=== PATIENT | male | born 2000 | race Caucasian/White ===

== ENCOUNTER 2018-07-14 11:37 | Emergency (ER) | payer OTHER, SELFPAY ==
[2018-07-14 11:42] VITALS: BP 145/83; PULSE 85; RESP 20; TEMP 36.6; O2SAT 97; BMI 39.9
--- NOTE | 2018-07-14 12:44 | ED.CHESTPAIN ---
HPI - Chest Pain <CYNTHIA Phipps - Last Filed: 07/14/18 21:29> General Chief Complaint: Chest Pain Stated Complaint: rash on left arm and stomach, chest pain, low O2 l Time Seen by Provider: 07/14/18 12:28 Source: patient Mode of arrival: ambulatory Limitations: no limitations History of Present Illness HPI narrative: 18-year-old healthy male that is an everyday smoker here for complaint of having chest pain over the past 3 days. He does report also having a mild cough. He denies any fevers or chills. He states the pain radiates to his back he describes the pain as mild in nature he denies any stressors or relievers of the pain. He also reports that he had a rash to his left arm that was present this morning when he woke up although at time of exam resolved. no nausea or vomiting. Positive p.o. intake. He denies any trauma to the chest area. He denies any strenuous activity. No shortness of breath. He denies any other concerns or complaints at this time. MD complaint: chest pain Related Data Previous Rx's Medication Instructions Recorded doxycycline hyclate 100 mg PO BID #14 tab 07/14/18 Allergies Allergy/AdvReac Type Severity Reaction Status Date / Time amoxicillin [From Augmentin] Allergy Verified 07/14/18 11:47 clavulanic acid Allergy Verified 07/14/18 11:47 [From Augmentin] NSAIDS (Non-Steroidal Allergy Verified 07/14/18 11:47 Anti-Inflamma Review of Systems <CYNTHIA Phipps - Last Filed: 07/14/18 21:29> Constitutional Denies chills, Denies fatigue, Denies fever(s), Denies lethargy and Denies weakness Eyes Denies change in vision, Denies eye discharge, Denies irritation and Denies loss of vision ENT Ears, Nose, Mouth, and Throat: Denies change in voice, Denies neck pain, Denies sore throat and Denies throat swelling Cardiovascular Reports chest pain Respiratory Reports cough and Denies wheezing Gastrointestinal Gastrointestinal: Denies abdominal pain, Denies change in bowel habits, Denies diarrhea, Denies nausea and Denies vomiting Genitourinary Denies hematuria, Denies flank pain, Denies urinary incontinence and Denies urinary urgency Musculoskeletal Denies neck pain Integumentary/Breasts Denies pruritus, Denies erythema, Denies rash and Denies wounds Neurologic Denies confusion, Denies loss of vision and Denies weakness Psychiatric Denies anxiety, Denies confusion, Denies depression, Denies homicidal ideation and Denies suicidal ideation Endocrine Denies fatigue and Denies flushing Hematologic/Lymphatic Denies easy bruising Allergic/Immunologic Denies urticaria, Denies throat swelling and Denies wheezing Exam <CYNTHIA Phipps - Last Filed: 07/14/18 21:29> Initial Vital Signs Initial Vital Signs: Vital Signs Temperature 97.8 F 07/14/18 11:42 Pulse Rate 85 07/14/18 11:42 Respiratory Rate 20 07/14/18 11:42 Blood Pressure 145/83 H 07/14/18 11:42 Pulse Oximetry 97 07/14/18 11:42 Const General: cooperative and well developed Nutritional Appearance: well nourished Orientation: alert, awake, oriented x3 and not confused HENMT Mouth: oral mucosae normal and oropharynx normal Eyes Conjunctivae: conjunctivae normal Sclera: sclerae normal Pupils: PERRL EOM: EOM intact bilaterally Chest Chest: normal inspection of the chest Resp Effort & Inspection: normal respiratory effort, able to speak in complete sentences, no respiratory distress and no use of accessory muscles Auscultation: clear to auscultation bilaterally, no rales, no rhonchi and no wheezes Cardio Rate: regular rate Rhythm: regular rhythm Heart Sounds: no click, no gallops, no murmurs and no rubs Skin General: no rashes or lesions noted, No jaundice and No petechiae Neuro General: alert, oriented x3, gait normal and no focal motor deficits Speech: speech normal <Randall Ruiz DO - Last Filed: 07/15/18 08:18> Initial Vital Signs Initial Vital Signs: Vital Signs Temperature 97.8 F 07/14/18 11:42 Pulse Rate 85 07/14/18 11:42 Respiratory Rate 20 07/14/18 11:42 Blood Pressure 145/83 H 07/14/18 11:42 Pulse Oximetry 97 07/14/18 11:42 Scores <CYNTHIA Phipps - Last Filed: 07/14/18 21:29> PERC Score Age greater than or equal to 50 years: No Heart rate greater than or equal to 100 bpm: No Room Air O2 Sat less than 95%: No Unilateral leg swelling: No Recent trauma or surgery: No Hemoptysis: No Prior PE or DVT: No Hormone Use: No Total PERC Score: 0 Course <CYNTHIA Phipps - Last Filed: 07/14/18 21:29> Orders Ordered: ED Orders 07/14/18 12:49 XR chest 1V Stat 07/14/18 13:04 Complete Blood Count AUTO DIFF Stat Comprehensive Metabolic Panel Stat Lipase Stat Troponin & CK Cardiac Panel Stat Vital Signs - 8 hr 07/14/18 13:53 Pulse Rate 82 Respiratory Rate 12 Blood Pressure [Right Arm] 120/75 Pulse Oximetry 96 <Randall Ruiz DO - Last Filed: 07/15/18 08:18> Orders Ordered: ED Orders 07/14/18 12:49 XR chest 1V Stat 07/14/18 13:04 Complete Blood Count AUTO DIFF Stat Comprehensive Metabolic Panel Stat Lipase Stat Troponin & CK Cardiac Panel Stat Vital Signs - 8 hr 07/14/18 13:53 Pulse Rate 82 Respiratory Rate 12 Blood Pressure [Right Arm] 120/75 Pulse Oximetry 96 MDM - Chest Pain <CYNTHIA Phipps - Last Filed: 07/14/18 21:29> Lab Data Result diagrams: 07/14/18 13:04 07/14/18 13:04 Lab Results 07/14/18 07/14/18 Range/Units 13:04 13:04 WBC 6.6 (4.5-11.0) X10^3/uL RBC 5.88 (4.5-5.9) X10^6/uL Hgb 17.0 (13.5-17.5) g/dL Hct 49.6 (41-53) % MCV 84.4 (80-100) fL MCH 28.9 (26-34) PG MCHC 34.3 (30-36) % RDW 13.6 (11.6-14.8) % Plt Count 235 (150-400) X10^3/uL Neut % (Auto) 55.8 (50-75) % Lymph % (Auto) 34.7 (25-40) % [place] % (Auto) 7.2 (3-14) % Eos % (Auto) 1.8 L (2-4) % Baso % (Auto) 0.5 (0-2) % Neut # (Auto) 3700 (6608-5435) /uL Sodium 144 (137-145) mmol/L Potassium 4.2 (3.4-5.1) mmol/L Chloride 104 (98-107) mmol/L Carbon Dioxide 26 (22-32) mmol/L BUN 12 (9-20) mg/dL Creatinine 0.70 (0.66-1.25) mg/dL Estimated GFR > 60.0 (>60) mL/min BUN/Creatinine Ratio 17.1 (6-22) Glucose 91 (70-100) mg/dL Calcium 9.5 (8.4-10.2) mg/dL Total Bilirubin 1.2 (0.2-1.3) mg/dL AST 25 (17-59) IU/L ALT 55 (21-72) IU/L Alkaline Phosphatase 40 (38-126) U/L Total Creatine Kinase 67 (55-170) U/L CK-MB (CK-2) TNP CK-MB (CK-2) Rel Index TNP Troponin I < 0.012 (0.01-0.034) ng/mL Total Protein 7.6 (6.3-8.2) g/dL Albumin 4.7 (3.5-5.0) g/dL Globulin 2.9 (1.7-4.1) g/dL Albumin/Globulin Ratio 1.6 (1.0-2.8) Lipase 35 (23-300) U/L Imaging Data Chest x-ray: Radiologist's impression: [address] [address] XRay Report Signed Patient: Kishore Marques [facility]#: [id number] : 2000Acct:[id number] Age/Sex: 18 MDate of Service: 07/14/18 Loc: ED Accession Number: [id number] Procedure: XR chest 1V Ordering Provider: Ryan Hussein PROCEDURE: XR CHEST 1V INDICATIONS: chest pain TECHNIQUE: One view of the chest was acquired. COMPARISON: None. FINDINGS: Surgical changes and devices: None. Lungs and pleura: Mild increased perihilar lung markings are identified. There may be developing airspace disease within the left infrahilar region. No large effusion or pneumothorax is evident. Mediastinum: Mediastinal contours appear normal. Heart size is normal. Bones and chest wall: No suspicious bony lesions. Overlying soft tissues appear unremarkable. IMPRESSION: Mild vascular congestion versus atypical viral pneumonia. There is questionable developing consolidation within the left lung base, which may represent developing bacterial pneumonia. Dictated by: Carlos Mar M.D. on 07/14/2018 at 12:11 Approved by: Carlos Mar M.D. on 07/14/2018 at 12:12 ECG Data Interpretation: EKG shows normal sinus rhythm with no ST elevation or depression. No ectopy. Ventricular rate is 76. Pr over 139. QRS duration of 116. QTC 376 MDM Narrative Medical decision making narrative: EKG shows sinus rhythm no ST elevation or depression. No ectopy. Chest x-ray was obtained and shows areas of mild vascular congestion versus atypical viral pneumonia and also questionable developing consolidation to the left lung base. CBC and Chem panel were obtained were unremarkable. Troponin was negative. Perc score was negative. Will empirically treat for starting pneumonia with doxycycline. Follow up with primary care provider in the next few days for re-evaluation. Plenty of fluids and rest. [id number] Tylenol Motrin as needed for any discomfort. <Randall Ruiz, DO - Last Filed: 07/15/18 08:18> Lab Data Lab Results 07/14/18 07/14/18 Range/Units 13:04 13:04 WBC 6.6 (4.5-11.0) X10^3/uL RBC 5.88 (4.5-5.9) X10^6/uL Hgb 17.0 (13.5-17.5) g/dL Hct 49.6 (41-53) % MCV 84.4 (80-100) fL MCH 28.9 (26-34) PG MCHC 34.3 (30-36) % RDW 13.6 (11.6-14.8) % Plt Count 235 (150-400) X10^3/uL Neut % (Auto) 55.8 (50-75) % Lymph % (Auto) 34.7 (25-40) % [place] % (Auto) 7.2 (3-14) % Eos % (Auto) 1.8 L (2-4) % Baso % (Auto) 0.5 (0-2) % Neut # (Auto) 3700 (5966-3856) /uL Sodium 144 (137-145) mmol/L Potassium 4.2 (3.4-5.1) mmol/L Chloride 104 (98-107) mmol/L Carbon Dioxide 26 (22-32) mmol/L BUN 12 (9-20) mg/dL Creatinine 0.70 (0.66-1.25) mg/dL Estimated GFR > 60.0 (>60) mL/min BUN/Creatinine Ratio 17.1 (6-22) Glucose 91 (70-100) mg/dL Calcium 9.5 (8.4-10.2) mg/dL Total Bilirubin 1.2 (0.2-1.3) mg/dL AST 25 (17-59) IU/L ALT 55 (21-72) IU/L Alkaline Phosphatase 40 (38-126) U/L Total Creatine Kinase 67 (55-170) U/L CK-MB (CK-2) TNP CK-MB (CK-2) Rel Index TNP Troponin I < 0.012 (0.01-0.034) ng/mL Total Protein 7.6 (6.3-8.2) g/dL Albumin 4.7 (3.5-5.0) g/dL Globulin 2.9 (1.7-4.1) g/dL Albumin/Globulin Ratio 1.6 (1.0-2.8) Lipase 35 (23-300) U/L Discharge Plan Departure Patient Disposition: Home Clinical Impression: Community acquired pneumonia Discharge Date/Time: 07/14/18 14:00 Interventions: ED Discharge Assessment Last Done: 07/14/18 13:59 Instructions: DI for Pneumonia -- Adult Activity Restrictions/Additional Instructions: laboratory results today were unremarkable. EKG was unremarkable. Cardiac enzymes today were negative. Chest x-ray does shows signs of a possible starting pneumonia. Year placed on antibiotic to cover for community-acquired pneumonia use as directed. Plenty of fluids. Use [id number] Tylenol as needed for any discomfort. Follow up with her primary care provider the next few days. For any worsening symptoms return to the emergency room. Prescriptions: New doxycycline hyclate 100 mg tablet 100 mg PO BID Qty: 14 RF: 0 Referrals: [facility] [Provider Group] <Randall Ruiz DO - Last Filed: 07/15/18 08:18> Cosign ED Attending Laureenature Attestation: I was immediately available in the department for consultation. Documentation has been reviewed. I agree with assessment and plan.
--- NOTE | 2018-07-14 12:49 | DI.RAD.S_ITS ---
PROCEDURE: XR CHEST 1V INDICATIONS: chest pain TECHNIQUE: One view of the chest was acquired. COMPARISON: None. FINDINGS: Surgical changes and devices: None. Lungs and pleura: Mild increased perihilar lung markings are identified. There may be developing airspace disease within the left infrahilar region. No large effusion or pneumothorax is evident. Mediastinum: Mediastinal contours appear normal. Heart size is normal. Bones and chest wall: No suspicious bony lesions. Overlying soft tissues appear unremarkable. IMPRESSION: Mild vascular congestion versus atypical viral pneumonia. There is questionable developing consolidation within the left lung base, which may represent developing bacterial pneumonia. Dictated by: Carlos Mar M.D. on 07/14/2018 at 12:11 Approved by: Carlos Mar M.D. on 07/14/2018 at 12:12
--- NOTE | 2018-07-14 12:52 | ED_ITS ---
HPI - Chest Pain <CYNTHIA Phipps - Last Filed: 07/14/18 21:29> General Chief Complaint: Chest Pain Stated Complaint: rash on left arm and stomach, chest pain, low O2 l Time Seen by Provider: 07/14/18 12:28 Source: patient Mode of arrival: ambulatory Limitations: no limitations History of Present Illness HPI narrative: 18-year-old healthy male that is an everyday smoker here for complaint of having chest pain over the past 3 days. He does report also having a mild cough. He denies any fevers or chills. He states the pain radiates to his back he describes the pain as mild in nature he denies any stressors or relievers of the pain. He also reports that he had a rash to his left arm that was present this morning when he woke up although at time of exam resolved. no nausea or vomiting. Positive p.o. intake. He denies any trauma to the chest area. He denies any strenuous activity. No shortness of breath. He denies any other concerns or complaints at this time. MD complaint: chest pain Related Data Previous Rx's Medication Instructions Recorded doxycycline hyclate 100 mg PO BID #14 tab 07/14/18 Allergies Allergy/AdvReac Type Severity Reaction Status Date / Time amoxicillin [From Augmentin] Allergy Verified 07/14/18 11:47 clavulanic acid Allergy Verified 07/14/18 11:47 [From Augmentin] NSAIDS (Non-Steroidal Allergy Verified 07/14/18 11:47 Anti-Inflamma Review of Systems <CYNTHIA Phipps - Last Filed: 07/14/18 21:29> Constitutional Denies chills, Denies fatigue, Denies fever(s), Denies lethargy and Denies weakness Eyes Denies change in vision, Denies eye discharge, Denies irritation and Denies loss of vision ENT Ears, Nose, Mouth, and Throat: Denies change in voice, Denies neck pain, Denies sore throat and Denies throat swelling Cardiovascular Reports chest pain Respiratory Reports cough and Denies wheezing Gastrointestinal Gastrointestinal: Denies abdominal pain, Denies change in bowel habits, Denies diarrhea, Denies nausea and Denies vomiting Genitourinary Denies hematuria, Denies flank pain, Denies urinary incontinence and Denies urinary urgency Musculoskeletal Denies neck pain Integumentary/Breasts Denies pruritus, Denies erythema, Denies rash and Denies wounds Neurologic Denies confusion, Denies loss of vision and Denies weakness Psychiatric Denies anxiety, Denies confusion, Denies depression, Denies homicidal ideation and Denies suicidal ideation Endocrine Denies fatigue and Denies flushing Hematologic/Lymphatic Denies easy bruising Allergic/Immunologic Denies urticaria, Denies throat swelling and Denies wheezing Exam <CYNTHIA Phipps - Last Filed: 07/14/18 21:29> Initial Vital Signs Initial Vital Signs: Vital Signs Temperature 97.8 F 07/14/18 11:42 Pulse Rate 85 07/14/18 11:42 Respiratory Rate 20 07/14/18 11:42 Blood Pressure 145/83 H 07/14/18 11:42 Pulse Oximetry 97 07/14/18 11:42 Const General: cooperative and well developed Nutritional Appearance: well nourished Orientation: alert, awake, oriented x3 and not confused HENMT Mouth: oral mucosae normal and oropharynx normal Eyes Conjunctivae: conjunctivae normal Sclera: sclerae normal Pupils: PERRL EOM: EOM intact bilaterally Chest Chest: normal inspection of the chest Resp Effort & Inspection: normal respiratory effort, able to speak in complete sentences, no respiratory distress and no use of accessory muscles Auscultation: clear to auscultation bilaterally, no rales, no rhonchi and no wheezes Cardio Rate: regular rate Rhythm: regular rhythm Heart Sounds: no click, no gallops, no murmurs and no rubs Skin General: no rashes or lesions noted, No jaundice and No petechiae Neuro General: alert, oriented x3, gait normal and no focal motor deficits Speech: speech normal <Randall Ruiz DO - Last Filed: 07/15/18 08:18> Initial Vital Signs Initial Vital Signs: Vital Signs Temperature 97.8 F 07/14/18 11:42 Pulse Rate 85 07/14/18 11:42 Respiratory Rate 20 07/14/18 11:42 Blood Pressure 145/83 H 07/14/18 11:42 Pulse Oximetry 97 07/14/18 11:42 Scores <CYNTHIA Phipps - Last Filed: 07/14/18 21:29> PERC Score Age greater than or equal to 50 years: No Heart rate greater than or equal to 100 bpm: No Room Air O2 Sat less than 95%: No Unilateral leg swelling: No Recent trauma or surgery: No Hemoptysis: No Prior PE or DVT: No Hormone Use: No Total PERC Score: 0 Course <CYNTHIA Phipps - Last Filed: 07/14/18 21:29> Orders Ordered: ED Orders 07/14/18 12:49 XR chest 1V Stat 07/14/18 13:04 Complete Blood Count AUTO DIFF Stat Comprehensive Metabolic Panel Stat Lipase Stat Troponin & CK Cardiac Panel Stat Vital Signs - 8 hr 07/14/18 13:53 Pulse Rate 82 Respiratory Rate 12 Blood Pressure [Right Arm] 120/75 Pulse Oximetry 96 <Randall Ruiz DO - Last Filed: 07/15/18 08:18> Orders Ordered: ED Orders 07/14/18 12:49 XR chest 1V Stat 07/14/18 13:04 Complete Blood Count AUTO DIFF Stat Comprehensive Metabolic Panel Stat Lipase Stat Troponin & CK Cardiac Panel Stat Vital Signs - 8 hr 07/14/18 13:53 Pulse Rate 82 Respiratory Rate 12 Blood Pressure [Right Arm] 120/75 Pulse Oximetry 96 MDM - Chest Pain <CYNTHIA Phipps - Last Filed: 07/14/18 21:29> Lab Data Result diagrams: 07/14/18 13:04 07/14/18 13:04 Lab Results 07/14/18 07/14/18 Range/Units 13:04 13:04 WBC 6.6 (4.5-11.0) X10^3/uL RBC 5.88 (4.5-5.9) X10^6/uL Hgb 17.0 (13.5-17.5) g/dL Hct 49.6 (41-53) % MCV 84.4 (80-100) fL MCH 28.9 (26-34) PG MCHC 34.3 (30-36) % RDW 13.6 (11.6-14.8) % Plt Count 235 (150-400) X10^3/uL Neut % (Auto) 55.8 (50-75) % Lymph % (Auto) 34.7 (25-40) % [place] % (Auto) 7.2 (3-14) % Eos % (Auto) 1.8 L (2-4) % Baso % (Auto) 0.5 (0-2) % Neut # (Auto) 3700 (4108-0380) /uL Sodium 144 (137-145) mmol/L Potassium 4.2 (3.4-5.1) mmol/L Chloride 104 (98-107) mmol/L Carbon Dioxide 26 (22-32) mmol/L BUN 12 (9-20) mg/dL Creatinine 0.70 (0.66-1.25) mg/dL Estimated GFR > 60.0 (>60) mL/min BUN/Creatinine Ratio 17.1 (6-22) Glucose 91 (70-100) mg/dL Calcium 9.5 (8.4-10.2) mg/dL Total Bilirubin 1.2 (0.2-1.3) mg/dL AST 25 (17-59) IU/L ALT 55 (21-72) IU/L Alkaline Phosphatase 40 (38-126) U/L Total Creatine Kinase 67 (55-170) U/L CK-MB (CK-2) TNP CK-MB (CK-2) Rel Index TNP Troponin I < 0.012 (0.01-0.034) ng/mL Total Protein 7.6 (6.3-8.2) g/dL Albumin 4.7 (3.5-5.0) g/dL Globulin 2.9 (1.7-4.1) g/dL Albumin/Globulin Ratio 1.6 (1.0-2.8) Lipase 35 (23-300) U/L Imaging Data Chest x-ray: Radiologist's impression: [address] [address] XRay Report Signed Patient: Kishore Marques [facility]#: [id number] : 2000Acct:[id number] Age/Sex: 18 MDate of Service: 07/14/18 Loc: ED Accession Number: [id number] Procedure: XR chest 1V Ordering Provider: Ryan Hussein PROCEDURE: XR CHEST 1V INDICATIONS: chest pain TECHNIQUE: One view of the chest was acquired. COMPARISON: None. FINDINGS: Surgical changes and devices: None. Lungs and pleura: Mild increased perihilar lung markings are identified. There may be developing airspace disease within the left infrahilar region. No large effusion or pneumothorax is evident. Mediastinum: Mediastinal contours appear normal. Heart size is normal. Bones and chest wall: No suspicious bony lesions. Overlying soft tissues appear unremarkable. IMPRESSION: Mild vascular congestion versus atypical viral pneumonia. There is questionable developing consolidation within the left lung base, which may represent developing bacterial pneumonia. Dictated by: Carlos Mar M.D. on 07/14/2018 at 12:11 Approved by: Carlos Mar M.D. on 07/14/2018 at 12:12 ECG Data Interpretation: EKG shows normal sinus rhythm with no ST elevation or depression. No ectopy. Ventricular rate is 76. Pr over 139. QRS duration of 116. QTC 376 MDM Narrative Medical decision making narrative: EKG shows sinus rhythm no ST elevation or depression. No ectopy. Chest x-ray was obtained and shows areas of mild vascular congestion versus atypical viral pneumonia and also questionable developing consolidation to the left lung base. CBC and Chem panel were obtained were unremarkable. Troponin was negative. Perc score was negative. Will empirically treat for starting pneumonia with doxycycline. Follow up with primary care provider in the next few days for re-evaluation. Plenty of fluids and rest. [id number] Tylenol Motrin as needed for any discomfort. <Randall Ruiz, DO - Last Filed: 07/15/18 08:18> Lab Data Lab Results 07/14/18 07/14/18 Range/Units 13:04 13:04 WBC 6.6 (4.5-11.0) X10^3/uL RBC 5.88 (4.5-5.9) X10^6/uL Hgb 17.0 (13.5-17.5) g/dL Hct 49.6 (41-53) % MCV 84.4 (80-100) fL MCH 28.9 (26-34) PG MCHC 34.3 (30-36) % RDW 13.6 (11.6-14.8) % Plt Count 235 (150-400) X10^3/uL Neut % (Auto) 55.8 (50-75) % Lymph % (Auto) 34.7 (25-40) % [place] % (Auto) 7.2 (3-14) % Eos % (Auto) 1.8 L (2-4) % Baso % (Auto) 0.5 (0-2) % Neut # (Auto) 3700 (4005-5808) /uL Sodium 144 (137-145) mmol/L Potassium 4.2 (3.4-5.1) mmol/L Chloride 104 (98-107) mmol/L Carbon Dioxide 26 (22-32) mmol/L BUN 12 (9-20) mg/dL Creatinine 0.70 (0.66-1.25) mg/dL Estimated GFR > 60.0 (>60) mL/min BUN/Creatinine Ratio 17.1 (6-22) Glucose 91 (70-100) mg/dL Calcium 9.5 (8.4-10.2) mg/dL Total Bilirubin 1.2 (0.2-1.3) mg/dL AST 25 (17-59) IU/L ALT 55 (21-72) IU/L Alkaline Phosphatase 40 (38-126) U/L Total Creatine Kinase 67 (55-170) U/L CK-MB (CK-2) TNP CK-MB (CK-2) Rel Index TNP Troponin I < 0.012 (0.01-0.034) ng/mL Total Protein 7.6 (6.3-8.2) g/dL Albumin 4.7 (3.5-5.0) g/dL Globulin 2.9 (1.7-4.1) g/dL Albumin/Globulin Ratio 1.6 (1.0-2.8) Lipase 35 (23-300) U/L Discharge Plan Departure Patient Disposition: Home Clinical Impression: Community acquired pneumonia Discharge Date/Time: 07/14/18 14:00 Interventions: ED Discharge Assessment Last Done: 07/14/18 13:59 Instructions: DI for Pneumonia -- Adult Activity Restrictions/Additional Instructions: laboratory results today were unremarkable. EKG was unremarkable. Cardiac enzymes today were negative. Chest x-ray does shows signs of a possible starting pneumonia. Year placed on antibiotic to cover for community-acquired pneumonia use as directed. Plenty of fluids. Use [id number] Tylenol as needed for any discomfort. Follow up with her primary care provider the next few days. For any worsening symptoms return to the emergency room. Prescriptions: New doxycycline hyclate 100 mg tablet 100 mg PO BID Qty: 14 RF: 0 Referrals: [facility] [Provider Group] <Randall Ruiz DO - Last Filed: 07/15/18 08:18> Cosign ED Attending Laureenature Attestation: I was immediately available in the department for consultation. Documentation has been reviewed. I agree with assessment and plan.
--- NOTE | 2018-07-14 12:52 | PC.NURSE ---
lab called to draw pt
[2018-07-14 13:13] LABS: Add Manual Diff / Slide Review NO; Basophils Percent Auto 0.5 % (0-2); Eosinophils Percent Auto 1.8 % (2-4); Hematocrit 49.6 % (41-53); Lymphocytes Percent Auto 34.7 % (25-40); Mean Corpuscular HGB Conc 34.3 % (30-36); Mean Corpuscular Hemoglobin 28.9 PG (26-34); Mean Corpuscular Volume 84.4 fL (80-100); Monocytes Percent Auto 7.2 % (3-14); Neutrophils Absolute Auto 3700 /uL (3000-5900); Neutrophils Percent Auto 55.8 % (50-75); Platelet Count 235 X10^3/uL (150-400); Red Blood Cell Count 5.88 X10^6/uL (4.5-5.9); Red Cell Distribution Width 13.6 % (11.6-14.8); White Blood Cell Count 6.6 X10^3/uL (4.5-11.0)
[2018-07-14 13:24] LABS: Alanine Aminotransferase 55 IU/L (21-72); Albumin 4.7 g/dL (3.5-5.0); Albumin Globulin Ratio 1.6 (1.0-2.8); Alkaline Phosphatase 40 U/L (38-126); Aspartate Aminotransferase 25 IU/L (17-59); BUN Creatinine Ratio 17.1 (6-22); Bilirubin Total 1.2 mg/dL (0.2-1.3); Blood Urea Nitrogen 12 mg/dL (9-20); Calcium 9.5 mg/dL (8.4-10.2); Carbon Dioxide 26 mmol/L (22-32); Chloride 104 mmol/L (98-107); Creatine Kinase 67 U/L (55-170); Estimated Glomerular Filt Rate > 60.0 mL/min (>60); Globulin 2.9 g/dL (1.7-4.1); Glucose 91 mg/dL (70-100); HEMOLYSIS < 15 (0-50); Lipase 35 U/L (23-300); Potassium 4.2 mmol/L (3.4-5.1); Sodium 144 mmol/L (137-145); Total Protein 7.6 g/dL (6.3-8.2)
[2018-07-14 13:36] LABS: Troponin I < 0.012 ng/mL (0.01-0.034)
[2018-07-14 13:53] VITALS: BP 120/75; PULSE 82; RESP 12; O2SAT 96
== END 2018-07-14 14:00 | disposition home or self-care (01) ==
PROVIDERS: Emergency Provider Nurse Practitioner Family
DX: J18.9 Pneumonia, unspecified organism (principal); R07.89 Other chest pain
CPT/HCPCS: 36415; 71045; 80053; 82550; 83690; 84484; 85025; 93005; 93010; 99282; 99285